=== PATIENT | female | born 1980 | race Caucasian/White ===

== ENCOUNTER 2018-02-14 20:36 | Emergency (ER) | payer OTHER ==
[~2018-02-14] VITALS: Ht 167.6 cm; Wt 103.9 kg
[~2018-02-14 20:36] MED LIST: AMITRIPTYLINE H50 MG PO; AMOXICILLIN500 M1 PO; BACTRIM,SEPT1 TABLET PO; BENTYL10 MG PO; CYMBALTA60 MG PO; DEPAKOTE ER500 MG PO; FENOFIBRATE145 M1 PO; GEODON80 MG PO; HYDROCODON-ACE1 EAC7 PO; KEFLEX500 MG PO; METFORMIN HCL500 MG PO; MINIPRESS2 MG PO; MOTRIN800 MG PO; NAPROSYN500 MG PO; NAPROXEN500 MG PO; NORCO 5/3251 TABLET PO; OMEPRAZOLE20 MG PO; PAROXETINE HCL20 MG PO; PEN-VEE K,VEET500 MG PO; PRILOSEC20 MG PO; PRISTIQ50 MG; REGLAN10 MG PO; SKELAXIN800 MG PO; TOPAMAX100 MG PO; TOPIRAMATE100 MG PO; TRICOR145 MG PO; TYLENOL WITH C1 EACH PO; VENLAFAXINE HC150 M1 PO; VENLAFAXINE HCL75 MG PO; WELLBUTRIN SR150 MG PO; ZIPRASIDONE HCL60 MG PO; ZIPRASIDONE HCL80 MG PO; ZOFRAN ODT4 MG PO; effexor; neurontin
[2018-02-14] MEDS ORDERED: NORCO 5/3251 TABLET PO (20:58)
[2018-02-14] MEDS ORDERED: MOTRIN600 MG PO (20:58)
[2018-02-14] MEDS ORDERED: AMOXICILLIN875 MG PO (20:58)
[2018-02-14 21:31] VITALS: BP 123/75
== END 2018-02-14 21:32 | disposition home or self-care (01) ==
LOC: EME 20:36
PROC: 0C95XZZ Drainage of Upper Gingiva, External Approach (ICD-10-PCS; principal; 2018-02-14)
DX: K04.7 Periapical abscess without sinus (principal); K02.9 Dental caries, unspecified; Z79.84 Long term (current) use of oral hypoglycemic drugs; F17.200 Nicotine dependence, unspecified, uncomplicated
CPT/HCPCS: 99281; 99284